=== PATIENT | female | born 1955 | race Caucasian/White ===

== ENCOUNTER 2021-09-17 10:28 | Outpatient (CLI) | payer MEDICARE | END 2021-09-17 10:29 | disposition home or self-care (01) | LOC: CSHCT 10:28 | PROVIDERS: ATTEND Family Medicine | DX: R91.1 Solitary pulmonary nodule (principal) | CPT/HCPCS: 71250 ==

== ENCOUNTER 2021-09-22 11:05 | Outpatient (CLI) | payer MEDICARE | END 2021-09-22 11:06 | disposition home or self-care (01) | LOC: CSHMAMMO 11:05 | PROVIDERS: ATTEND Family Medicine | DX: Z12.31 Encounter for screening mammogram for malignant neoplasm of breast (principal); Z85.528 Personal history of other malignant neoplasm of kidney | CPT/HCPCS: 77063; 77067 ==

== ENCOUNTER 2024-05-14 08:03 | Outpatient (CLI) | payer MEDICARE ==
[2024-05-14] MEDS ORDERED: Sodium Bicarbonate 2.5 MEQ/5 ML SDV ONE (08:23)
[2024-05-14 08:42] VITALS: BP 141/78; TEMP 98.4
[2024-05-14] MEDS ORDERED: Iopamidol 200 41% 50 ML VIAL FS ONE (10:09)
== END 2024-05-14 10:22 | disposition home or self-care (01) ==
LOC: CSHRAD 08:03
PROVIDERS: ATTEND Nurse Practitioner Family
DX: M48.062 Spinal stenosis, lumbar region with neurogenic claudication (principal); Z98.1 Arthrodesis status
CPT/HCPCS: 62284; 72132; 77003